=== PATIENT | female | born 2000 | race Caucasian/White ===

== ENCOUNTER 2025-05-05 19:00 | Emergency (ER) | payer OTHER, SELFPAY ==
[2025-05-05 19:13] VITALS: BP 121/66; PULSE 86; RESP 20; TEMP 36.4; O2SAT 99; BMI 22.4
--- NOTE | 2025-05-05 19:19 | DI.RAD.S_ITS ---
PROCEDURE: XR ANKLE LT MIN 3V INDICATIONS: glf TECHNIQUE: 3 views of the ankle were acquired. COMPARISON: None. FINDINGS: Bones: No fractures or dislocations. Ankle mortise is normally aligned. No suspicious bony lesions. Soft tissues: No tibiotalar joint effusion. Achilles tendon appears normal. IMPRESSION: No acute ankle fracture or dislocation. No significant joint effusion. Dictated by: Giovanny López M.D. on 05/05/2025 at 19:45 Approved by: Giovanny López M.D. on 05/05/2025 at 19:45
--- NOTE | 2025-05-05 20:13 | ED_ITS ---
HPI - Extremity Injury (Lower) General Chief Complaint: Extremity Injury, Lower Stated Complaint: Lt leg pain, fell can't feel muscle Time Seen by Provider: 05/05/25 19:21 Source: patient Mode of arrival: Ambulatory History of Present Illness HPI Narrative: 25-year-old female was playing tennis on [employer] this afternoon, pushed off to run left side, felt pain in the Achilles region of her left ankle, unable to bear weight due to the pain. Was splinted by EMS, arrived POV for further evaluation. No other injuries. Related Data Allergies Allergy/AdvReac Type Severity Reaction Status Date / Time No Known Allergies Allergy Mild Verified 05/05/25 19:13 Exam Narrative Exam Narrative: GENERAL: Well-developed patient, in mild distress. HEAD: Atraumatic. Normocephalic. EYES: Pupils equal round and reactive. Extraocular motions intact. No scleral icterus. No injection or drainage. ENT: Nose without bleeding, purulent drainage. Throat without erythema, tonsillar hypertrophy or exudate. Airway patent. NECK: Trachea midline. Non tender CARDIOVASCULAR: Regular rate and rhythm without murmurs, gallops, or rubs. RESPIRATORY: Clear to auscultation. Breath sounds equal bilaterally. No wheezes, rales, or rhonchi. GASTROINTESTINAL: Abdomen soft, non-tender, nondistended. EXTREMITIES: Left ankle without medial or lateral joint line tenderness, no gross deformity. No tenderness with squeezing of calcaneus. No tenderness at base of 5th metatarsal. No tenderness mid distal foot or phalanges. Some tenderness at Achilles insertion, though she has motion with dorsiflexion and plantar flexion, not consistent with complete Achilles tendon disruption. No proximal foreleg tenderness. BACK: Nontender without deformity or crepitance. No flank tenderness. NEURO: AOx3. Motor functions grossly nonfocal. SKIN: No rash or erythema of visible areas Initial Vital Signs Initial Vital Signs: Vital Signs Temperature 97.6 F 05/05/25 19:13 Pulse Rate 86 05/05/25 19:13 Respiratory Rate 20 05/05/25 19:13 Blood Pressure 121/66 05/05/25 19:13 Pulse Oximetry 99 05/05/25 19:13 Oxygen Delivery Method Room Air 05/05/25 19:13 Course Orders Ordered: ED Orders 05/05/25 19:19 XR ankle LT min 3V Stat Vital Signs Vital signs: Vital Signs - 8 hr 05/05/25 19:13 05/05/25 21:15 05/05/25 21:17 Temperature 97.6 F Pulse Rate 86 70 72 Respiratory Rate 20 16 16 Blood Pressure 121/66 120/60 120/60 Pulse Oximetry 99 Oxygen Delivery Method Room Air Room Air MDM - Extremity Injury (Lower) Imaging Data Extremity x-ray #1: Radiologist's Impression: [address] [address] XRay Report Signed Patient: Billie Guzman MR#: [id number] : 2000 Acct:[id number] Age/Sex: 25 / F Date of Service: 05/05/25 Loc: ED Accession Number: [id number] Procedure: XR ankle LT min 3V Ordering Provider: Javi Arthur MD PROCEDURE: XR ANKLE LT MIN 3V INDICATIONS: glf TECHNIQUE: 3 views of the ankle were acquired. COMPARISON: None. FINDINGS: Bones: No fractures or dislocations. Ankle mortise is normally aligned. No suspicious bony lesions. Soft tissues: No tibiotalar joint effusion. Achilles tendon appears normal. IMPRESSION: No acute ankle fracture or dislocation. No significant joint effusion. Dictated by: Giovanny López M.D. on 05/05/2025 at 19:45 Approved by: Giovanny López M.D. on 05/05/2025 at 19:45 [facility] Narrative Medical decision making narrative: 25-year-old female pushed off playing tennis with acute onset left Achilles area pain. Screening ankle x-ray requested at triage. X-ray left ankle negative for fracture. She can plantar flex and dorsiflex a little bit, limited by pain. Not consistent with a complete Achilles tendon disruption. Possible strain/tear. Tenderness at Achilles insertion, no shortening or gross swelling. No tenderness to medial or lateral joint line or at base of 5th metatarsal. Case discussed with Orthopedic surgery Dr. Oviedo. Crutches nonweightbearing, placed in left short-leg splint. Follow up with ortho. Might need MRI if concern for tear persists in follow up exam. Discharged home with friend. Follow up [facility] clinic in 2 days. Can follow up with Orthopedic surgery, contact clinic information provided for office of Dr. Oviedo. Return precautions discussed. Discharge Plan Departure Patient Disposition: Home Clinical Impression: Achilles tendinitis, left leg Activity Restrictions/Additional Instructions: Pushing off with left ankle like injury while playing tennis today, pain posterior Achilles tendon region. Ankle x-ray series negative for any fracture or dislocation. Some tenderness at the Achilles tendon insertion at the base of the calcaneus portion of the foot bone. There is motion of plantar flexion and dorsiflexion, limited by pain. There is not necessarily complete rupture of the Achilles tendon, though it can be partially torn or strained. Crutches and nonweightbearing, left posterior splint for comfort and protection. Reassess ankle foot Achilles region in the next 2-3 days. Consider follow up with Orthopedic surgery if persisting pain, sometimes MRI evaluation might be needed to see if there is a tear or rupture of the Achilles tendon or muscle structures in that area. Take Tylenol as needed for pain control. Take OTC ibuprofen as needed for pain control. Wear splint and use crutches for nonweightbearing until further follow up with your regular doctor on [facility]. Contact information provided for orthopedic surgery as well. Referrals: Wilber Oviedo MD [Physician, Orthopedic Surgery] Stand Alone Forms: Patient Portal/API
[2025-05-05 21:15] VITALS: BP 120/60; PULSE 70; RESP 16
[2025-05-05 21:17] VITALS: BP 120/60; PULSE 72; RESP 16
== END 2025-05-05 21:10 | disposition home or self-care (01) ==
PROVIDERS: Emergency Provider Emergency Medicine
DX: M76.62 Achilles tendinitis, left leg (principal); X58.XXXA Exposure to other specified factors, initial encounter; Y93.73 Activity, racquet and hand sports
CPT/HCPCS: 73610; 99282; 99283